=== PATIENT | female | born 1945 | race Caucasian/White ===

== ENCOUNTER 2023-02-16 09:53 | Outpatient (REF) | payer MEDICARE, SELFPAY ==
--- NOTE | ~2023-02-16 | XR_ITS ---
EXAMINATION: XR LUMBOSACRAL SPINE WITH OBLIQUES CLINICAL INFORMATION: Pain. COMPARISON: None available. TECHNIQUE: AP and lateral view of the lumbosacral spine with lateral flexion-extension views. FINDINGS: No acute fracture, significant spondylolisthesis, or spondylolysis is identified. No instability is seen on flexion-extension views. There is multilevel disc space narrowing which appears most significant at the L3-L4 and L5-S1 levels. There is mild scoliosis convex right. Degenerative marginal spurring is seen at multiple levels. There is facet arthropathy present at multiple levels. There is calcification of a nonaneurysmal abdominal aorta. XR/XR lumbar spine 4V min IMPRESSION: Multilevel degenerative disc disease without evidence of acute fracture, significant spondylolisthesis, or spondylolysis identified.
== END 2023-02-16 09:54 | disposition home or self-care (01) ==
LOC: HO.HOSX 09:53
PROVIDERS: Visit Provider Physician Assistant
DX: M51.36 Other intervertebral disc degeneration, lumbar region (principal)
CPT/HCPCS: 72110; 99202

== ENCOUNTER 2023-04-19 05:55 | Day surgery (SDC) | payer MEDICARE, SELFPAY ==
[2023-04-05 11:55] VITALS: BP 189/81; PULSE 50; RESP 16; O2SAT 99; BMI 20.6
--- NOTE | 2023-04-18 13:34 | HO.ANESPROP2 ---
Documented by User: Lilly Neri NP 04/18/23 13:36 HPI - Anesthesia Eval Consult details Narrative: 78yo F for Right L5-S1 Micro Lumbar discectomy Cardiac optimized, states BP now well controlled. EKG, echo, carotid, labs from outside facility on chart. [facility] Active Problems Active Problems: All Active Problems (Updated 04/05/23 @ 11:48 by Emani Hall RN) Lumbar degenerative disc disease (Acute) Past Medical History Medical History Abnormal chest CT Arthritis Back pain Bipolar 1 disorder Carpal tunnel syndrome Constipation CVA (cerebral vascular accident) Edema of lower extremity Hiatal hernia HTN (hypertension) Hyperlipidemia IBS (irritable bowel syndrome) Inguinal hernia Lumbar radiculopathy Neuropathy Paresthesia of foot Paresthesia of hand Raynaud's phenomenon Sleep apnea Status post placement of implantable loop recorder Tobacco dependence syndrome Surgical History Surgical History H/O colonoscopy History of dilatation and curettage Hx of hernia repair Social History Social History Household Members Other:: son Are you a primary special needs child caregiver to a significant other at home: No Do you presently have visiting nurse or other home services: No Patient Tobacco Use Status: Current everyday Tobacco user Tobacco use type: Cigarette Cigarette Packs Per Day: 0.5 Cigarettes Per Day: 10.0 Years Smoked: 65 Use of substances other than those prescribed or required for medical reasons: No Have you been hit, kicked, punched, or otherwise hurt by someone within the past year? If so, by whom?: No Are you DNR?: No Advance Directives: No Advance Directives Information Provided: Yes Advance Directives on File: No Recently lost weight without trying: No Nutrition Risks: No Nutritional Risk Patient : No : No Poor oral hygiene: Yes (implants, full bottom and partial upper denture) Meds Allergies Allergy/AdvReac Type Severity Reaction Status Date / Time cobalt Allergy Unknown Verified 04/04/23 09:30 Home Medications Medication Instructions Recorded Confirmed Last Taken Type aspirin 81 mg tablet,delayed 81 mg PO DAILY 04/04/23 04/04/23 Unknown History release atorvastatin 10 mg tablet 10 mg PO BEDTIME 04/04/23 04/05/23 Unknown History clonazepam 0.5 mg tablet 0.5 mg PO BID 04/04/23 04/05/23 Unknown History fluoxetine 20 mg tablet 40 mg PO DAILY 04/04/23 04/04/23 Unknown History furosemide 20 mg tablet 20 mg PO DAILY 04/04/23 04/05/23 Unknown History ibuprofen 200 mg capsule (Motrin 200 mg PO Q6H PRN Pain 04/04/23 04/04/23 Unknown History IB) melatonin 1 mg tablet 1 mg PO BEDTIME PRN Insomnia 04/04/23 04/05/23 Unknown History pyridoxine (vitamin B6) 50 mg 50 mg PO DAILY 04/04/23 04/04/23 Unknown History tablet (Vitamin B-6) quetiapine 25 mg tablet 25 mg PO BEDTIME 04/04/23 04/04/23 Unknown History Exam Exam Date and Time: April 18, 2023 1334 Height,Weight and Vital Signs: Height 4 ft 11 in Weight 46.266 kg Last Vital Signs Pulse 50 04/05/23 11:55 Resp 16 04/05/23 11:55 BP 189/81 H 04/05/23 11:55 Pulse Ox 99 04/05/23 11:55 O2 Del Method Room Air 04/05/23 11:55 Assessment and Plan Assessment Anesthesia Assessment: Chart Reviewed Documented by User: Patti Ortega MD 04/19/23 08:47 PMFSH Active Problems Active Problems: All Active Problems (Updated 04/05/23 @ 11:48 by Emani Hall RN) Lumbar degenerative disc disease (Acute) CVA 11/2021. No residual effects Linq monitor- no arrhythmias detected Past Medical History Medical History Abnormal chest CT Arthritis Back pain Bipolar 1 disorder Carpal tunnel syndrome Constipation CVA (cerebral vascular accident) Edema of lower extremity Hiatal hernia HTN (hypertension) Hyperlipidemia IBS (irritable bowel syndrome) Inguinal hernia Lumbar radiculopathy Neuropathy Paresthesia of foot Paresthesia of hand Raynaud's phenomenon Sleep apnea Status post placement of implantable loop recorder Tobacco dependence syndrome Family History Family history of problems with anesthesia: No Surgical History Surgical History H/O colonoscopy History of dilatation and curettage Hx of hernia repair History of Problems with Anesthesia: No Social History Social History Household Members Other:: son Are you a primary special needs child caregiver to a significant other at home: No Do you presently have visiting nurse or other home services: No Patient Tobacco Use Status: Current everyday Tobacco user Tobacco use type: Cigarette Cigarette Packs Per Day: 0.5 Cigarettes Per Day: 10.0 Years Smoked: 65 Use of substances other than those prescribed or required for medical reasons: No Have you been hit, kicked, punched, or otherwise hurt by someone within the past year? If so, by whom?: No Are you DNR?: No Advance Directives: No Advance Directives Information Provided: Yes Advance Directives on File: No Recently lost weight without trying: No Nutrition Risks: No Nutritional Risk Patient : No : No Poor oral hygiene: Yes (implants, full bottom and partial upper denture) Meds Allergies Allergy/AdvReac Type Severity Reaction Status Date / Time cobalt Allergy Unknown Verified 04/04/23 09:30 Home Medications Medication Instructions Recorded Confirmed Last Taken Type aspirin 81 mg tablet,delayed 81 mg PO DAILY 04/04/23 04/04/23 Unknown History release atorvastatin 10 mg tablet 10 mg PO BEDTIME 04/04/23 04/05/23 Unknown History clonazepam 0.5 mg tablet 0.5 mg PO BID 04/04/23 04/05/23 Unknown History fluoxetine 20 mg tablet 40 mg PO DAILY 04/04/23 04/04/23 Unknown History furosemide 20 mg tablet 20 mg PO DAILY 04/04/23 04/05/23 Unknown History ibuprofen 200 mg capsule (Motrin 200 mg PO Q6H PRN Pain 04/04/23 04/04/23 Unknown History IB) melatonin 1 mg tablet 1 mg PO BEDTIME PRN Insomnia 04/04/23 04/05/23 Unknown History pyridoxine (vitamin B6) 50 mg 50 mg PO DAILY 04/04/23 04/04/23 Unknown History tablet (Vitamin B-6) quetiapine 25 mg tablet 25 mg PO BEDTIME 04/04/23 04/04/23 Unknown History Exam Height,Weight and Vital Signs: Height 4 ft 11 in Weight 46.266 kg Last Vital Signs Pulse 50 04/05/23 11:55 Resp 16 04/05/23 11:55 BP 189/81 H 04/05/23 11:55 Pulse Ox 99 04/05/23 11:55 O2 Del Method Room Air 04/05/23 11:55 Vital Signs Temp Pulse Resp BP Pulse Ox O2 Del Method 04/19/23 06:40 97.5 F 48 L 16 165/59 H 98 Room Air Airway Mallampati Class: III TM Dist: >3cm Neck ROM: Full Denture: Lower Partial: Upper Loose/Missing/Broken Teeth: Yes (Denies broken or loose teeth. Dentures) Heart: RRR Lungs: CTAB Assessment and Plan Assessment Anesthesia Assessment: Anesthesia Plan Discussed Final Anesthetic Review Family History of Problems with Anesthesia: No History of Problems with Anesthesia: No NPO: Yes ASA Class: III Final Preanesthetic Review: No Changes in Pt Med Stat, Meds/Allgs Chart Reviewed, Consent Obtained/Reviewed and Anes Risks/Benef Reviewed Patient Risk: Intermediate Procedure Risk: Intermediate Assessment/Block/Sedation in SS: Assess/Block/Sedation- Anesthetic Plan Anesthetic Plan: GA Disposition: Standard PACU
[2023-04-19] VITALS (11 sets, daily range): BP systolic 132–166; BP diastolic 39–66; PULSE 48–81; RESP 14–18; TEMP 36.4–36.7; O2SAT 93–98
--- NOTE | ~2023-04-19 | FL_ITS ---
EXAMINATION: XR FLUOROSCOPY WITH IMAGES CLINICAL INFORMATION: L5-S1 microlumbar discectomy, right. COMPARISON: None available. TECHNIQUE: Fluoroscopy Supervised By: Dr. Maximiliano Fraga. Fluoroscopy Time: 0.0 minutes. Cumulative Dose: 1.27 mGy. DAP: 0.266 Gycm2. Images: 1. FINDINGS: Single lateral interoperative view demonstrates posterior surgical instrument placement in the L5-S1 disc space. FL/FL guidance in OR IMPRESSION: Fluoroscopic guidance for L5-S1 surgery.
--- NOTE | 2023-04-19 06:40 | PC.NURSE ---
low heart rate asymptomatic. no cp, sob or dizziness.
[2023-04-19] MEDS: Gabapentin 300 MG CAPSULE PO (06:55)
[2023-04-19] MEDS: methocarbamoL 750 MG TABLET PO (06:55)
[2023-04-19] MEDS: Lactated Ringers 1,000 ML 100 ML IVCONT (06:55)
--- NOTE | 2023-04-19 06:58 | MHC.SHP ---
Pre-Procedural Eval Section A Date of Service: 04/19/23 Section B Chief Complaint: Other intervertebral disc degeneration, lumbar reg Allergies: Allergies Allergy/AdvReac Type Severity Reaction Status Date / Time cobalt Allergy Unknown Verified 04/04/23 09:30 Review of Systems Sugical H&P ROS: Negative: Constitution, Cardiovascular, Respiratory, Neurological, Psychiatric, Hem-Onc, Allergic/Immunologic, Gastrointestinal, Genitourinary, Musculoskeletal, Integumentary, Endocrine and Eyes/Ears/Nose/Throat Exam Surgical H&P Exam: Not Evaluated: HEENT, Not Evaluated: Heart, Not Evaluated: Lungs, Not Evaluated: Extremities, Not Evaluated: Abdomen, Not Evaluated: Skin and Not Evaluated: Neurological Plan I have reviewed the history and physical and performed a pertinent physical examination on my patient. No changes have occurred unless specified. Plan remains the same, L5-S1 Microdiskectomy Time Spent With Patient Time: Total time managing care of this patient today __10__ minutes.
--- NOTE | 2023-04-19 06:59 | PM.DS ---
DS: Providers Provider Date of Service: 04/20/23 Primary care physician: Nonstaff Physician DS: Diagnosis Discharge Diagnosis (1) S/P lumbar microdiscectomy: Status: Acute DS: Summary Hospital Course Time spent discussing smoking cessation with patient: 3 to 10 minutes Time Spent with Patient Time attestation: Total time managing care of this patient today _10___ minutes. Discharge coordination time: Less than 30 minutes Quality: Safe Use of Opioids Does Pt have an Active Cancer Diagnosis on the Problem List?: No Quality: Stroke Does the patient have a stroke diagnosis?: No Physical Exam Vital Signs: Vital Signs: Last Vital Signs Temp 97.5 F 04/19/23 06:40 Pulse 48 L 04/19/23 06:40 Resp 16 04/19/23 06:40 BP 165/59 H 04/19/23 06:40 Pulse Ox 98 04/19/23 06:40 O2 Del Method Room Air 04/19/23 06:40 BMI result Body Mass Index 20.6 Discharge Plan Discharge Patient Disposition: Home, Self-Care Referrals: Physician,Nonstaff [Primary Care Provider] - 1 Week Discharge Medications: New tramadol 50 mg tablet 50 mg PO Q6H PRN (Reason: pain) Qty: 30 0RF No Action atorvastatin 10 mg Tablet 10 mg PO BEDTIME aspirin 81 mg Tablet,Delayed Release (Dr/Ec) 81 mg PO DAILY quetiapine 25 mg tablet 25 mg PO BEDTIME ibuprofen [Motrin IB] 200 mg Capsule 200 mg PO Q6H PRN (Reason: Pain) clonazepam 0.5 mg Tablet 0.5 mg PO BID fluoxetine 20 mg Tablet 40 mg PO DAILY pyridoxine (vitamin B6) [Vitamin B-6] 50 mg Tablet 50 mg PO DAILY furosemide 20 mg Tablet 20 mg PO DAILY melatonin 1 mg Tablet 1 mg PO BEDTIME PRN (Reason: Insomnia) Discharge Orders: Discharge Order (Routine); Ordered 04/19/23 Ordered By: Juan Andrea Diet: Advance to usual diet Activity on Discharge: As tolerated Activity Restrictions/Additional Instructions: AFTER YOUR SPINAL SURGERY WE ASK YOU TO OBSERVE THE FOLLOWING RESTRICTIONS/GUIDELINES: ACTIVITY: IT IS NORMAL TO FEEL SOME DISCOMFORT YOU INCREASE YOUR ACTIVITY, BUT THAT WILL IMPROVE WITH TIME. WE ASK YOU AVOID HEAVY LIFTING OR ACITIVITIES THAT CAUSE PAIN. A GENERAL RULE, 8LBS IS A SAFE LIMIT FOR LIFTING RIGHT AFTER SURGERY. WALK MUCH YOU FEEL COMFORTABLE BUT NOT TO EXHAUSTION. YOU WILL FEEL EXTRA TIRED THE FIRST FEW DAYS AFTER SURGERY. STAY WELL HYDRATED. IT IS OK TO WALK UP AND DOWN STAIRS YOU MAY RETURN TO DRIVING WHEN YOU ARE OFF NARCOTICS (SUCH VICODIN, OXYCODONE, DILAUDID, ETC), AND YOU ARE BACK TO NORMAL FUNCTIONAL CAPACITY. IF YOU HAVE ANY CONCERNS PLEASE CHECK WITH OFFICE BEFORE DRIVING. RETURN TO WORK IS SPECIFIC TO EACH PATIENT AND EACH SURGERY, SO PLEASE SPEAK WITH YOUR DOCTOR/PA AT FIRST FOLLOW UP. PLEASE BRING PAPERWORK SUCH FMLA AT THAT TIME IF YOU NEED IT FILLED OUT. MEDICATIONS: PLEASE USE IBUPROFEN AND TYLENOL AROUND THE CLOCK FOR PAIN. IF NEEDED WE HAVE PRESCRIBED YOU A NARCOTIC TO YOUR PHARMACY AT [facility]. WE WILL GIVE YOU A SHORT SUPPLY OF NARCOTICS AFTER SURGERY (USUALLY ONE WEEKS WORTH). IF YOU NEED MORE PLEASE CALL THE OFFICE BUT DO NOT USE MORE THAN PRESCRIBED. YOU WILL NEED TO GIVE OUR OFFICE 48 HOURS NOTICE IF YOU NEED NARCOTICS REFILLED AND WE DO NOT FILL NARCOTICS ON WEEKENDS OR EVENINGS. IF YOU ARE ON A NARCOTIC, IT IS A GOOD IDEA TO TAKE A STOOL SOFTENER SUCH COLACE OR SENNA TO AVOID CONSTIPATION IF YOU TAKE BLOOD THINNER SUCH ASPIRIN, PLAVIX, COUMADIN, EFFIENT, ELIQUIS ETC FOR CONDITIONS SUCH AFIB, DVT, PULMONARY EMBOLUS, CORONARY DISEASE, STENTS ETC PLEASE SPEAK WITH YOUR SURGEON ABOUT SPECIFIC DETAILS TO WHEN YOU CAN RESUME THESE MEDICATIONS. YOU CAN RESUME NSAIDS ON POST OP DAY 1 (EG: MOTRIN, NAPROXEN, ETC). FOLLOW UP: PLEASE CALL THE OFFICE, , AFTER SURGERY TO ARRANGE A 3 WEEK FOLLOW UP FOR WOUND CHECK. WOUND CARE: YOU MAY REMOVE YOUR DRESSING ON THE FIRST DAY AFTER SURGERY. YOU MAY LEAVE OPEN TO AIR. PLEASE DO NOT REMOVE THE STERI STRIPS UNDERNEATH. THEY WILL FALL OFF ON THEIR OWN IN ONE WEEK. IT IS NORMAL FOR THE WOUND TO OOZE OR BE BLOODY FOR A FEW DAYS AFTER SURGERY. IF THIS HAPPENS JUST PLACE NEW DRESSING OVER IT TO AVOID STAINING CLOTHES. YOU MAY SHOWER ON POST OP DAY # 1 WE ASK THAT YOU DO NOT LET THE WATER SOAK THE WOUND. IF IT DOES GET WET, JUST TOWEL DRY LIGHTLY. PLEASE DO NOT SCRUB YOUR INCISION OR PLACE ANY TYPE OF CHEMICAL/OINTMENT ON THE WOUND. NO TUB BATHS, POOLS OR JACUZZIS FOR ONE MONTH. IF YOU HAVE ANY LEAKING OR REDNESS FROM YOUR WOUND, OR FEVERS, PLEASE CALL OFFICE Discharge Date/Time: 04/19/23 12:01
--- NOTE | 2023-04-19 09:21 | P.DS_ITS ---
DS: Providers Provider Date of Service: 04/19/23 Date of discharge: 04/19/23 Primary care physician: Nonstaff Physician Admitting clinician: Maximiliano Fraga DS: Diagnosis Discharge Diagnosis (1) S/P lumbar microdiscectomy: Status: Acute DS: Summary Time Spent with Patient Time attestation: Total time managing care of this patient today ____ minutes. Discharge coordination time: Less than 30 minutes Quality: Safe Use of Opioids Does Pt have an Active Cancer Diagnosis on the Problem List?: No Quality: Stroke Does the patient have a stroke diagnosis?: No Physical Exam Vital Signs: Vital Signs: Last Vital Signs Temp 97.5 F 04/19/23 06:40 Pulse 48 L 04/19/23 06:40 Resp 16 04/19/23 06:40 BP 165/59 H 04/19/23 06:40 Pulse Ox 98 04/19/23 06:40 O2 Del Method Room Air 04/19/23 06:40 BMI result Body Mass Index 20.6 Discharge Plan Discharge Patient Disposition: Home, Self-Care Referrals: Physician,Nonstaff [Primary Care Provider] - 1 Week Discharge Medications: New tramadol 50 mg tablet 50 mg PO Q6H PRN (Reason: pain) Qty: 30 0RF No Action atorvastatin 10 mg Tablet 10 mg PO BEDTIME aspirin 81 mg Tablet,Delayed Release (Dr/Ec) 81 mg PO DAILY quetiapine 25 mg tablet 25 mg PO BEDTIME ibuprofen [Motrin IB] 200 mg Capsule 200 mg PO Q6H PRN (Reason: Pain) clonazepam 0.5 mg Tablet 0.5 mg PO BID fluoxetine 20 mg Tablet 40 mg PO DAILY pyridoxine (vitamin B6) [Vitamin B-6] 50 mg Tablet 50 mg PO DAILY furosemide 20 mg Tablet 20 mg PO DAILY melatonin 1 mg Tablet 1 mg PO BEDTIME PRN (Reason: Insomnia) Discharge Orders: Discharge Order (Routine); Ordered 04/19/23 Ordered By: Juan Andrea Diet: Advance to usual diet Activity on Discharge: As tolerated Activity Restrictions/Additional Instructions: AFTER YOUR SPINAL SURGERY WE ASK YOU TO OBSERVE THE FOLLOWING RESTRICTIONS/GUIDELINES: ACTIVITY: IT IS NORMAL TO FEEL SOME DISCOMFORT YOU INCREASE YOUR ACTIVITY, BUT THAT WILL IMPROVE WITH TIME. WE ASK YOU AVOID HEAVY LIFTING OR ACITIVITIES THAT CAUSE PAIN. A GENERAL RULE, 8LBS IS A SAFE LIMIT FOR LIFTING RIGHT AFTER SURGERY. WALK MUCH YOU FEEL COMFORTABLE BUT NOT TO EXHAUSTION. YOU WILL FEEL EXTRA TIRED THE FIRST FEW DAYS AFTER SURGERY. STAY WELL HYDRATED. IT IS OK TO WALK UP AND DOWN STAIRS YOU MAY RETURN TO DRIVING WHEN YOU ARE OFF NARCOTICS (SUCH VICODIN, OXYCODONE, DILAUDID, ETC), AND YOU ARE BACK TO NORMAL FUNCTIONAL CAPACITY. IF YOU HAVE ANY CONCERNS PLEASE CHECK WITH OFFICE BEFORE DRIVING. RETURN TO WORK IS SPECIFIC TO EACH PATIENT AND EACH SURGERY, SO PLEASE SPEAK WITH YOUR DOCTOR/PA AT FIRST FOLLOW UP. PLEASE BRING PAPERWORK SUCH FMLA AT THAT TIME IF YOU NEED IT FILLED OUT. MEDICATIONS: PLEASE USE IBUPROFEN AND TYLENOL AROUND THE CLOCK FOR PAIN. IF NEEDED WE HAVE PRESCRIBED YOU A NARCOTIC TO YOUR PHARMACY AT [facility]. WE WILL GIVE YOU A SHORT SUPPLY OF NARCOTICS AFTER SURGERY (USUALLY ONE WEEKS WORTH). IF YOU NEED MORE PLEASE CALL THE OFFICE BUT DO NOT USE MORE THAN PRESCRIBED. YOU WILL NEED TO GIVE OUR OFFICE 48 HOURS NOTICE IF YOU NEED NARCOTICS REFILLED AND WE DO NOT FILL NARCOTICS ON WEEKENDS OR EVENINGS. IF YOU ARE ON A NARCOTIC, IT IS A GOOD IDEA TO TAKE A STOOL SOFTENER SUCH COLACE OR SENNA TO AVOID CONSTIPATION IF YOU TAKE BLOOD THINNER SUCH ASPIRIN, PLAVIX, COUMADIN, EFFIENT, ELIQUIS ETC FOR CONDITIONS SUCH AFIB, DVT, PULMONARY EMBOLUS, CORONARY DISEASE, STENTS ETC PLEASE SPEAK WITH YOUR SURGEON ABOUT SPECIFIC DETAILS TO WHEN YOU CAN RESUME THESE MEDICATIONS. YOU CAN RESUME NSAIDS ON POST OP DAY 1 (EG: MOTRIN, NAPROXEN, ETC). FOLLOW UP: PLEASE CALL THE OFFICE, , AFTER SURGERY TO ARRANGE A 3 WEEK FOLLOW UP FOR WOUND CHECK. WOUND CARE: YOU MAY REMOVE YOUR DRESSING ON THE FIRST DAY AFTER SURGERY. YOU MAY LEAVE OPEN TO AIR. PLEASE DO NOT REMOVE THE STERI STRIPS UNDERNEATH. THEY WILL FALL OFF ON THEIR OWN IN ONE WEEK. IT IS NORMAL FOR THE WOUND TO OOZE OR BE BLOODY FOR A FEW DAYS AFTER SURGERY. IF THIS HAPPENS JUST PLACE NEW DRESSING OVER IT TO AVOID STAINING CLOTHES. YOU MAY SHOWER ON POST OP DAY # 1 WE ASK THAT YOU DO NOT LET THE WATER SOAK THE WOUND. IF IT DOES GET WET, JUST TOWEL DRY LIGHTLY. PLEASE DO NOT SCRUB YOUR INCISION OR PLACE ANY TYPE OF CHEMICAL/OINTMENT ON THE WOUND. NO TUB BATHS, POOLS OR JACUZZIS FOR ONE MONTH. IF YOU HAVE ANY LEAKING OR REDNESS FROM YOUR WOUND, OR FEVERS, PLEASE CALL OFFICE
--- NOTE | 2023-04-19 09:23 | P.OP_ITS ---
Operative Note Operative Note Date of Service: 04/19/23 Narrative: Preoperative diagnosis: bilaterallumbar radiculopathy due to disc herniation Postoperative diagnosis: Same Procedure: L5-[id number] microdiskectomy with microscope; right-sided approach Surgeon: Maximiliano Fraga MD, PhD Thread Milling Machine Set Up Operator: Juan Lopez this 78-year-old female is complaining of a right lumbar radiculopathy. Today in a holding She states that her left side is alsoaffected. MRI shows central disc bulge compressing the bilateral S1 nerve roots. The patient was offered a lumbar microdiskectomy to decompress the nerve root. The procedure complications were explained. The patient was consented. The patient was brought to the operating room and endotracheally intubated. The patient was turned in a prone position on the Clyde frame. Prepping and draping was done followed by time-out. A mid lumbar incision was made followed by release of the paravertebral muscles on the right side to expose the L5-S1 interspace. An intraoperative x-rays obtained to confirm the correct level. The microscope was brought in. A [] laminotomy was done followed by opening of the flavum ligament. The [] nerve root was identified and retracted medially to expose the L5-S1 disc space. the S1 nerve root was scarred down to the disc space. I dissected and freed the nerve from scar tissue after which I performed an annulotomy. A few fragments were removed but no clear central disc herniation was found. I used a long nerve hook to sweep under the thecal sac to undo adhesions. The disc space was inspected and any residual disc fragments were removed. This resulted in an excellent decompression of the biilateral [id number] roots. Hemostasis was done. The microscope was removed. Marcaine was injected intramuscularly.The incision was closed in two layers. Steri-Strips used to approximate seizure. An op-site were taken there was used to cover the incision. All sponge and needle counts were correct. Patient was extubated and transported in stable condition to recovery room. this procedure was done with the aid of a physician press assistant and feeder who performed the initial exposure until the microscope was brought in and performed the closure of the incision. Anesthesia: General Blood loss: 10 mL Complications: None Specimen: None Disposition: Discharge home
[2023-04-19] MEDS: fentaNYL citrate/PF 100 MCG/2 ML VIAL 25 MCG IVPUSH ×3 (09:47→10:02)
[2023-04-19] MEDS: oxyCODONE HCl Immed Release 5 MG TABLET PO (09:52)
== END 2023-04-19 12:01 | disposition home or self-care (01) ==
PROVIDERS: Visit Provider Neurological Surgery
PROC: (CPT 63030; principal; 2023-04-19 07:30)
DX: M51.16 Intervertebral disc disorders with radiculopathy, lumbar region (principal); M54.50 Low back pain, unspecified; Z91.81 History of falling; G47.33 Obstructive sleep apnea (adult) (pediatric); F31.9 Bipolar disorder, unspecified; Z95.811 Presence of heart assist device; Z86.73 Personal history of transient ischemic attack (TIA), and cerebral infarction without residual deficits; Z79.82 Long term (current) use of aspirin; Z79.899 Other long term (current) drug therapy; Z98.890 Other specified postprocedural states; F17.210 Nicotine dependence, cigarettes, uncomplicated
CPT/HCPCS: 63030; J0131; J0330; J0690; J1100; J1885; J2250; J2405; J3010

== ENCOUNTER → 2023-04-19 05:55 | Outpatient (BNV) | payer MEDICARE, SELFPAY | PROVIDERS: Visit Provider Physician Assistant | DX: M51.16 Intervertebral disc disorders with radiculopathy, lumbar region (principal) | CPT/HCPCS: 63030; 99499 ==

== ENCOUNTER 2023-05-11 12:56 | Outpatient (AMB) | payer MEDICARE, SELFPAY ==
--- NOTE | 2023-05-11 13:04 | A.SPINEOV_ITS ---
Intake Intake Visit Reasons: 1st post op Intake Note: Mrs. Irene is here today for her 1st post-op visit. Production Packager Required: No Allergies cobalt Allergy (Verified 04/04/23 09:30) Unknown Assessment & Plan Assessment & Plan (1) S/P lumbar microdiscectomy: Code(s): Z98.890 - Other specified postprocedural states Plan Yasmin is here today for her 1st follow up appointment. She is s/p L5-S1 lumbar microdiskectomy performed on 04/19/23. Her post hospital course was complicated by persistent low back pain which she had a very difficult time relieving. She was trialed on multiple different pain medications which she states did not give her relief. He also trialed a muscle relaxer which she feels was not helpful. Today she comes to the office and states that she is still feeling like she did not have significant relief postoperatively. She is able to ambulate well, rise from a seated position without difficulty, and reports she is able to complete her ADLs around the household. Of note she also had some kind of negative reaction to the medications that she takes in conjunction with her tramadol and ended up in the emergency department at [facility] who told her that she was having a ?adult overdose as a result of all the medications that she takes. Her symptoms at this time or fatigue, lethargy and somnolence. We did spend an extensive period of time discussing the current medication regimen that she is on which include Prozac, clonazepam, and Remeron which can all have sedatvie effects. She did admit to accidentally dosing her TID prozac all at once in the morning for several days. Under physical exam her incision is clean, dry, intact and is without erythema, edema, or fluctuance. The patient will be seen back in 6 weeks and will have lumbar spine x-rays completed before her appointment. Total amount of time spent in this visit was 20 minutes in discussion of symptoms, intra-operative imaging results, medication regimen / effects, and subsequent plan of care. Percy Fraga MD,PhD [facility] Orders: Orders XR lumbar spine 4V min Today Z98.890 - Other specified postprocedural states Coding Level of Care Code Est Pt Level 3 (50068) Diagnoses S/P lumbar microdiscectomy Z98.890
== END 2023-05-11 13:50 | disposition home or self-care (01) ==
PROVIDERS: Visit Provider Physician Assistant
DX: Z98.890 Other specified postprocedural states (principal)
CPT/HCPCS: 99213

== ENCOUNTER 2023-05-11 12:56 | Outpatient (REF) | payer MEDICARE, SELFPAY | END 2023-05-11 12:57 | disposition home or self-care (01) | LOC: HO.HOSX 12:56 | PROVIDERS: Visit Provider Physician Assistant | DX: M54.50 Low back pain, unspecified (principal); R53.83 Other fatigue; R40.0 Somnolence; Z98.890 Other specified postprocedural states; Z79.899 Other long term (current) drug therapy | CPT/HCPCS: 99212 ==

== ENCOUNTER 2023-06-22 12:35 | Outpatient (AMB) | payer MEDICARE, SELFPAY ==
--- NOTE | 2023-06-22 12:54 | A.OFFVIS_ITS ---
Intake Intake Visit Reasons: 2nd post op with xrays Intake Note: Pt here for 2nd post op with X rays Hospital Ward Clerk Required: No Allergies cobalt Allergy (Verified 04/04/23 09:30) Unknown [facility] Medical History (Updated 04/19/23 @ 07:39 by aSvita Duran RN) Cardiac abnormality Arthritis Back pain Hiatal hernia Status post placement of implantable loop recorder Tobacco dependence syndrome Sleep apnea Carpal tunnel syndrome Hyperlipidemia IBS (irritable bowel syndrome) Inguinal hernia Neuropathy HTN (hypertension) Paresthesia of foot Paresthesia of hand CVA (cerebral vascular accident) Raynaud's phenomenon Constipation Bipolar 1 disorder Lumbar radiculopathy Edema of lower extremity Abnormal chest CT Surgical History History of dilatation and curettage Hx of hernia repair H/O colonoscopy Social History Household Members Other:: son Are you a primary certified social workers in health care to a significant other at home: No Do you presently have visiting nurse or other home services: No Patient Tobacco Use Status: Current everyday Tobacco user Tobacco use type: Cigarette Cigarette Packs Per Day: 0.5 Cigarettes Per Day: 10.0 Years Smoked: 65 Assessment & Plan Assessment & Plan (1) S/P lumbar microdiscectomy: Code(s): Z98.890 - Other specified postprocedural states Plan Procedure: L5-S1 lumbar microdiskectomy Yasmin comes in today for her 2nd postoperative visit. She reports she is very satisfied with the surgery and feels much better than she did preoperatively. She is now reporting days where she feels 0 pain and states ?I would not even know that I had surgery? but does states that there are other days where she does still feel tender in her low back/right leg. Both her and her asked several follow-up questions including restrictions such as dancing, walking and exercising. She was advised that walking short-moderate distances is good for her to do each day. Further, I recommended that she return to normal activity as tolerated and only restrict her activities as she feels as though she feels her low back is tender or feels a pulling/draining sensation in her low back. We also discussed her anxiety a great length, and discussed the manifestations of anxiety including physical health manifestations. Full strength in upper and lower extremities. Mobility is intact. Sensation grossly intact. Patient is able to ambulate well, rises from a seated position without difficulty. Incision sites are closed, well healing, with no signs of drainage. Yasmin does not require routine follow-up at this time. She may be discharged as a patient. She was strongly encouraged to follow-up in the future if she feels she needs to see us. Percy Fraga MD,PhD [facility] Coding Level of Care Code Global (45819) Diagnoses S/P lumbar microdiscectomy Z98.890
== END 2023-06-22 13:04 | disposition home or self-care (01) ==
PROVIDERS: Visit Provider Physician Assistant
DX: Z98.890 Other specified postprocedural states (principal)
CPT/HCPCS: 99024

== ENCOUNTER → 2023-06-22 12:35 | Outpatient (BNVA) | payer MEDICARE, SELFPAY | PROVIDERS: Visit Provider Physician Assistant ==

== ENCOUNTER 2023-06-22 12:37 | Outpatient (REF) | payer MEDICARE, SELFPAY ==
--- NOTE | ~2023-06-22 | XR_ITS ---
EXAMINATION: XR LUMBOSACRAL SPINE WITH OBLIQUES CLINICAL INFORMATION: Other specified post procedural states. COMPARISON: Radiographs dated 02/16/2023. TECHNIQUE: AP and lateral views of the lumbar spine were obtained. Lateral views were obtained in flexion, extension, and neutral positions. FINDINGS: There is bony demineralization. There is a mild lumbar levoscoliosis. At L3-L4, there is moderately severe disc space narrowing. The remaining disc spaces are relatively well-maintained. No acute fracture or spondylolisthesis is seen. This multi-level lumbar spondylosis and facet arthropathy. The posterior elements are intact. There are diffuse aortoiliac atherosclerotic calcifications. XR/XR lumbar spine 4V min IMPRESSION: There is multi-level lumbar degenerative disc disease, spondylosis and facet arthropathy. Degenerative disc disease is most pronounced at L3-L4, worse moderately severe
== END 2023-06-22 12:38 | disposition home or self-care (01) ==
LOC: HO.HOSX 12:37
PROVIDERS: Visit Provider Physician Assistant
DX: Z48.89 Encounter for other specified surgical aftercare (principal)
CPT/HCPCS: 72110; 99212